=== PATIENT | male | born 1970 | race Native Hawaiian/Other Pacific Islander ===

== ENCOUNTER 2021-09-08 23:40 | Emergency (ER) | payer OTHER ==
[~2021-09-08] VITALS: Ht 175.3 cm; Wt 66.7 kg
[2021-09-09 00:01] LABS: PLATELET COUNT 249 K/uL (142-355)
[2021-09-09 00:17] LABS: POTASSIUM 3.9 mmol/L (3.6-5.2)
[2021-09-09 01:00] VITALS: BP 123/80; TEMP 98.1
[2021-09-09] MEDS ORDERED: DIVALPROEX250 MG PO (08:34)
[2021-09-09] MEDS ORDERED: OLANZAPINE5 MG PO (08:35)
[2021-09-09] MEDS ORDERED: IBU600 MG PO (08:36)
[2021-09-09] MEDS ORDERED: HYDROXYZINE HYD25 MG PO (08:37)
[2021-09-09] MEDS ORDERED: ROWEEPRA500 MG PO (08:38)
[2021-09-09] MEDS ORDERED: KP FOLIC ACID1 MG PO (08:39)
[2021-09-09] MEDS ORDERED: MULTIVITAMI1 PO (08:39)
[2021-09-09] MEDS ORDERED: B-1100 MG PO (08:40)
== END 2021-09-09 01:00 | disposition still patient (30) ==
LOC: ED 23:40
PROVIDERS: Emergency Medicine Emergency Medical Services
DX: R46.89 Other symptoms and signs involving appearance and behavior (principal); R56.9 Unspecified convulsions; Z11.52 Encounter for screening for COVID-19; Z04.6 Encounter for general psychiatric examination, requested by authority
CPT/HCPCS: 36415; 80053; 85027; 87635; 93005; 99283; U0003